=== PATIENT | male | born 1980 | race Caucasian/White ===

== ENCOUNTER 2017-01-04 21:47 | Emergency (ER) | payer SELFPAY ==
[~2017-01-04] VITALS: Ht 188 cm; Wt 83.9 kg
[2017-01-04 22:18] VITALS: BP 159/89
[2017-01-04] MEDS ORDERED: AMOX875T PO (22:38)
[2017-01-04] MEDS ORDERED: NAPR500T8 PO (22:38)
[2017-01-04] MEDS ORDERED: HYDR-971 PO (22:38)
--- NOTE | 2017-01-04 22:39 | PHYS DOC ---
Past Medical History Past Medical History: No Pertinent History Past Surgical History: No Surgical History Alcohol Use: Rarely Drug Use: None Adult General Chief Complaint Chief Complaint: DENTAL PROBLEM HPI HPI Patient is a 36 year male who presents with 8 out of 10 right low wisdom tooth dental pain that is chronic in nature but has gotten worse in the last couple days. Patient states he has an appointment with an oral surgeon on 01/16/17 to have it removed. Patient denies any fever or trismus. He states his tried Tylenol with no relief. Review of Systems Review of Systems Constitutional: Denies fever or chills [] Eyes: Denies change in visual acuity, redness, or eye pain [] HENT: Dental pain Musculoskeletal: Denies back pain or joint pain [] Integument: Denies rash or skin lesions [] Neurologic: Denies headache, focal weakness or sensory changes [] Endocrine: Denies polyuria or polydipsia [] Allergies Allergies Allergies Coded Allergies Type Severity Reaction Last Updated Verified No Known Drug Allergies 01/04/17 No Physical Exam Physical Exam Constitutional: Well developed, well nourished, no acute distress, non-toxic appearance. [] HENT: Normocephalic, atraumatic, bilateral external ears normal, oropharynx moist, no oral exudates, nose normal. [] Right lower wisdom tooth is broken, scattered dental caries throughout his teeth. Eyes: PERRLA, EOMI, conjunctiva normal, no discharge. [] Skin: Warm, dry, no erythema, no rash. [] Back: No tenderness, no CVA tenderness. [] Extremities: No tenderness, no cyanosis, no clubbing, ROM intact, no edema. [] Neurologic: Alert and oriented X 3, normal motor function, normal sensory function, no focal deficits noted. [] Psychologic: Affect normal, judgement normal, mood normal. [] Current Patient Data Vital Signs Vital Signs Date Time Temp Pulse Resp B/P Pulse Ox O2 Delivery O2 Flow Rate FiO2 01/04/17 22:18 98.2 80 16 98 Room Air 98.2 EKG EKG [] Radiology/Procedures Radiology/Procedures [] Course & Med Decision Making Course & Med Decision Making Pertinent Labs and Imaging studies reviewed. (See chart for details) Patient is in the ED with infected dental caries. Discharged with amoxicillin and hydrocodone for pain. He has an appointment with the oral surgeon at [facility] 01/16/2017 to have it removed. Jerry Disclaimer Jerry Disclaimer This electronic medical record was generated, in whole or in part, using a voice recognition dictation system. Departure Departure Impression: Primary Impression: Dentalgia Additional Impression: Infected dental caries Disposition: 01 HOME, SELF-CARE Condition: STABLE Patient Instructions: Dental Caries Additional Instructions: You were seen for dental pain. Please follow up with your oral surgeon as scheduled. Scripts Naproxen 500 Mg Tablet.dr1 Tab PO BID #60 TAB Ref 2 Prov:HITESH OLSON APRN 01/04/17 Hydrocodone/Apap 5-325 ([place] 5-325 Tablet)1 Each Tablet1-2 Tab PO Q4-6HRS #20 TAB Prov:HITESH OLSON APRN 01/04/17 Amoxicillin 875 Mg Tablet1 Tab PO BID #20 TAB Prov:HITESH OLSON APRN 01/04/17 Problem Qualifiers HITESH OLSON APRN Jan 04, 2017 22:38
== END 2017-01-04 22:42 | disposition home or self-care (01) ==
LOC: ER 21:47
DX: K02.9 Dental caries, unspecified (principal); G89.29 Other chronic pain; K08.89 Other specified disorders of teeth and supporting structures
CPT/HCPCS: 99283